=== PATIENT | female | born 1995 | race Two or more races ===

== ENCOUNTER 2023-01-06 21:58 | Emergency (ER) | payer SELFPAY ==
[2023-01-07] MEDS ORDERED: Acetaminophen 325 MG Tab PO ONE (00:44)
[2023-01-07] MEDS ORDERED: Ibuprofen 400 MG Tab PO ONE (00:44)
[2023-01-07] MEDS ORDERED: oxyCODONE 5 MG Tab PO ONE (00:44)
[2023-01-07] MEDS ORDERED: Amoxicillin/Clavulanate K 875-125 MG Tab PO ONE (00:44)
[2023-01-07] MEDS: oxyCODONE 5 MG Tab PO STA ×2 (01:06→01:18)
== END 2023-01-07 01:47 | disposition home or self-care (01) ==
LOC: MW.ED 21:58
DX: K08.89 Other specified disorders of teeth and supporting structures (principal)
CPT/HCPCS: 99282; A9270; 99283

== ENCOUNTER 2023-02-18 19:15 | Emergency (ER) | payer SELFPAY | END 2023-02-18 20:00 | disposition home or self-care (01) | LOC: MW.ED 19:15 | DX: K08.89 Other specified disorders of teeth and supporting structures (principal) | CPT/HCPCS: 99282; 99283 ==